=== PATIENT | male | born 1955 | race Asian ===

== ENCOUNTER 2017-08-16 02:56 | Inpatient (IN) | payer OTHER ==
[~2017-08-16] VITALS: Ht 160 cm; Wt 67.6 kg
[2017-08-16] MEDS ORDERED: LOSA25TA21 PO (03:07)
[2017-08-16] MEDS ORDERED: [UNRECOGNIZED DRUG - REMARK] PO (03:09)
[2017-08-16] MEDS ORDERED: [UNRECOGNIZED DRUG - REMARK] PO (03:09)
[2017-08-16] MEDS ORDERED: SODIUM CHLORIDE 0.9% 1,000 ML IV ONE ×2 (03:30→07:00)
[2017-08-16] MEDS ORDERED: ACETAMINOPHEN 500 MG TABLET PO ONE (03:30)
[2017-08-16] MEDS ORDERED: ONDANSETRON HCL 4 MG/2 ML VIAL IVP ONE (03:30)
[2017-08-16] MEDS ORDERED: HYDROmorphone 2 MG/ML SYRINGE IVP ONE (03:30)
[2017-08-16 03:34] LABS: HEMATOCRIT 41.2 % (41-53); HEMOGLOBIN 13.7 g/dL (13.5-17.5); MEAN CORPUSCULAR HEMOGLOBIN 29.4 pg (26.0-34.0); MEAN CORPUSCULAR HGB CONC 33.3 G/dL (31.0-37.0); MEAN CORPUSCULAR VOLUME 88 fL (80-100); PLATELET COUNT (AUTO) 606 K/uL (150-450); RED BLOOD CELL COUNT(AUTO) 4.67 MIL/uL (4.50-5.90); RED CELL DISTRIBUTION WIDTH 14.2 % (11.5-14.5); WHITE BLOOD COUNT (AUTO) 19.9 K/uL (4.5-11.0)
[2017-08-16 03:42] LABS: CALCIUM, TOTAL 8.9 mg/dL (8.8-10.5); CREATININE 2.05 mg/dL (0.60-1.30); POTASSIUM 3.7 mmol/L (3.5-5.1)
[2017-08-16 03:57] LABS: ALBUMIN 3.4 g/dL (3.4-5.0); BILIRUBIN,TOTAL 0.7 mg/dL (0.1-1.0); TOTAL PROTEIN, SERUM 7.9 g/dL (6.4-8.2)
[2017-08-16 04:00] LABS: BAND NEUTROPHILS % (MANUAL) 18 % (1-5); LYMPHOCYTES % (MANUAL) 5 % (22-44); TOTAL CELLS COUNTED 100
[2017-08-16 04:01] LABS: RBC MORPHOLOGY COMMENT NORMAL RBC MORPH
[2017-08-16 04:03] LABS: APPEARANCE,URINE CLOUDY (CLEAR); GLUCOSE, URINE (UA) NEGATIVE (NEGATIVE); KETONES,URINE NEGATIVE (NEGATIVE); LEUKOCYTE ESTERASE ,URINE LARGE (NEGATIVE); OCCULT BLOOD,URINE MODERATE (NEGATIVE); PROTEIN,URINE TRACE (NEGATIVE)
[2017-08-16 04:08] LABS: ADD UA MICROSCOPIC YES
[2017-08-16 04:20] LABS: RBC,URINE 0-2 /HPF (0-2); SQUAMOUS EPITHELIAL CELL,UR Few /LPF (None Seen); WBC,URINE 26-50 /HPF (0-5)
[2017-08-16] MEDS ORDERED: CefTRIAXone 1 GM/DEXTROSE 50 ML IV ONE (07:00)
[2017-08-16 07:06] LABS: LACTIC ACID 2.2 mmol/L (0.4-2.0)
[2017-08-16 08:25] LABS: REFLEX LACTIC ACID? YES YES
[2017-08-16] MEDS ORDERED: MAGNESIUM HYDROXIDE SUSPENSION 30 ML UDCUP PO PRN (09:15)
[2017-08-16] MEDS ORDERED: ONDANSETRON HCL 4 MG/2 ML VIAL IVP PRN (09:15)
[2017-08-16] MEDS ORDERED: BISACODYL 10 MG RECTAL RECTAL SUPPOSITORY PR PRN (09:15)
[2017-08-16] MEDS: SODIUM CHLORIDE 0.9% 1,000 ML IV SCH ×2 (09:30→20:16)
[2017-08-16] MEDS: PIPERACILLIN SODIUM/TAZOBACTAM 2.25 GM in DEXTROSE 5%-WATER 50 ML IV SCH ×3 (09:32→21:23)
[2017-08-16 11:09] VITALS: BP 141/82
[2017-08-16 12:50] LABS: INR 1.1 (0.9-1.1)
[2017-08-16] MEDS ORDERED: MIDAZOLAM HCL 2 MG/2 ML VIAL ONE ×2 (12:56→15:02)
[2017-08-16] MEDS ORDERED: FentaNYL CITRATE-PF 100 MCG/2 ML VIAL ONE ×2 (12:56→15:02)
[2017-08-16] MEDS ORDERED: CeFAZolin 1 GM/DEXTROSE 0 ML IV ONE (12:56)
[2017-08-16] MEDS ORDERED: LIDOCAINE HCL/PF 1% 30 ML VIAL ONE (15:02)
[2017-08-16] MEDS ORDERED: CeFAZolin 1 GM/DEXTROSE 50 ML IV ONE ×2 (15:03→16:35)
[2017-08-16 15:33] VITALS: BP 120/63
[2017-08-16] MEDS ORDERED: IOHEXOL 240 MG/ML 50 ML VIAL ONE (15:42)
[2017-08-16] MEDS ORDERED: PNEUMOCOCCAL VACCINE POLYVALENT 0.5 ML VIAL [PPSV23] IM ONE (17:00)
[2017-08-16] MEDS: ACETAMINOPHEN 325 MG TABLET PO PRN (17:58)
[2017-08-16] MEDS: DOCUSATE SODIUM 100 MG CAPSULE PO SCH (20:08)
[2017-08-16 20:27] VITALS: BP 94/58
[2017-08-16 23:40] VITALS: BP 119/69
[2017-08-17] MEDS: ACETAMINOPHEN 325 MG TABLET PO PRN ×4 (02:05→20:00)
[2017-08-17] MEDS: PIPERACILLIN SODIUM/TAZOBACTAM 2.25 GM in DEXTROSE 5%-WATER 50 ML IV SCH ×4 (03:43→21:31)
[2017-08-17 04:59] VITALS: BP 93/52
[2017-08-17 07:25] VITALS: BP 110/61
[2017-08-17] MEDS: PANTOPRAZOLE SODIUM 40 MG/VIAL IVP SCH (07:55)
[2017-08-17] MEDS: DOCUSATE SODIUM 100 MG CAPSULE PO SCH ×2 (07:55→21:30)
[2017-08-17] MEDS: SODIUM CHLORIDE 0.9% 1,000 ML IV SCH (11:03)
[2017-08-17 11:27] VITALS: BP 103/64
[2017-08-17 15:25] VITALS: BP 98/56
[2017-08-17] MEDS: MORPHINE SULFATE 2 MG/ML SYRINGE IVP PRN (18:55)
[2017-08-17 20:25] VITALS: BP 147/84
[2017-08-17 23:52] VITALS: BP 125/78
[2017-08-18] MEDS: ACETAMINOPHEN 325 MG TABLET PO PRN ×5 (00:18→23:24)
[2017-08-18] MEDS: SODIUM CHLORIDE 0.9% 1,000 ML IV SCH ×3 (00:21→20:17)
[2017-08-18] MEDS: PIPERACILLIN SODIUM/TAZOBACTAM 2.25 GM in DEXTROSE 5%-WATER 50 ML IV SCH (04:05)
[2017-08-18 05:17] VITALS: BP 133/76
[2017-08-18 07:03] LABS: CALCIUM, TOTAL 8.5 mg/dL (8.8-10.5); CREATININE 1.76 mg/dL (0.60-1.30); POTASSIUM 3.6 mmol/L (3.5-5.1)
[2017-08-18 07:14] LABS: BASOPHILS % (AUTO) 0.1 % (0.0-2.0); EOSINOPHILS % (AUTO) 0.3 % (1.0-6.0); HEMATOCRIT 34.6 % (41-53); HEMOGLOBIN 11.5 g/dL (13.5-17.5); LYMPHOCYTES % (AUTO) 3.7 % (22.0-44.0); MEAN CORPUSCULAR HEMOGLOBIN 29.8 pg (26.0-34.0); MEAN CORPUSCULAR HGB CONC 33.3 G/dL (31.0-37.0); MEAN CORPUSCULAR VOLUME 90 fL (80-100); MONOCYTES # (AUTO) 0.9 K/uL (0.1-1.0); MONOCYTES % (AUTO) 3.2 % (2.0-9.0); NEUTROPHILS # (AUTO) 25.3 K/uL (1.8-7.7); NEUTROPHILS % (AUTO) 92.7 % (40.0-70.0); PLATELET COUNT (AUTO) 348 K/uL (150-450); RBC MORPHOLOGY COMMENT NORMAL RBC MORPH; RED BLOOD CELL COUNT(AUTO) 3.85 MIL/uL (4.50-5.90); RED CELL DISTRIBUTION WIDTH 14.7 % (11.5-14.5); WHITE BLOOD COUNT (AUTO) 27.3 K/uL (4.5-11.0)
[2017-08-18 07:20] VITALS: BP 134/77
[2017-08-18] MEDS: DOCUSATE SODIUM 100 MG CAPSULE PO SCH ×2 (08:06→20:16)
[2017-08-18] MEDS: PANTOPRAZOLE SODIUM 40 MG/VIAL IVP SCH (08:06)
[2017-08-18 11:18] VITALS: BP 115/61
[2017-08-18] MEDS ORDERED: CefoTEtan DISOD 1 GM/DEXTROSE 50 ML IV SCH (12:00)
[2017-08-18 15:02] VITALS: BP 128/73
[2017-08-18 19:49] VITALS: BP 142/75
[2017-08-18] MEDS: CefoTEtan DISOD 1 GM/DEXTROSE 50 ML IV SCH (23:24)
[2017-08-18 23:38] VITALS: BP 152/85
[2017-08-19] VITALS (7 sets, daily range): BP systolic 135–162; BP diastolic 72–89
[2017-08-19] MEDS: MORPHINE SULFATE 2 MG/ML SYRINGE IVP PRN ×2 (02:54→08:05)
[2017-08-19] MEDS: DOCUSATE SODIUM 100 MG CAPSULE PO SCH ×2 (08:04→20:07)
[2017-08-19] MEDS: PANTOPRAZOLE SODIUM 40 MG/VIAL IVP SCH (08:04)
[2017-08-19] MEDS: SODIUM CHLORIDE 0.9% 1,000 ML IV SCH ×2 (08:04→23:29)
[2017-08-19] MEDS: CefoTEtan DISOD 1 GM/DEXTROSE 50 ML IV SCH ×2 (12:24→23:09)
[2017-08-19] MEDS: ACETAMINOPHEN 325 MG TABLET PO PRN (16:18)
[2017-08-19] MEDS: OXYGEN THERAPY IH SCH (20:07)
[2017-08-20] MEDS: MORPHINE SULFATE 2 MG/ML SYRINGE IVP PRN ×2 (02:32→08:22)
[2017-08-20 04:47] VITALS: BP 156/86
[2017-08-20 07:46] VITALS: BP 162/89
[2017-08-20] MEDS: OXYGEN THERAPY IH SCH ×2 (08:19→20:14)
[2017-08-20] MEDS: PANTOPRAZOLE SODIUM 40 MG/VIAL IVP SCH (08:19)
[2017-08-20] MEDS: DOCUSATE SODIUM 100 MG CAPSULE PO SCH ×2 (08:21→20:14)
[2017-08-20] MEDS ORDERED: AmLODIPine BESYLATE 5 MG TABLET PO SCH (09:00)
[2017-08-20 11:28] VITALS: BP 150/83
[2017-08-20] MEDS: CefoTEtan DISOD 1 GM/DEXTROSE 50 ML IV SCH (11:39)
[2017-08-20] MEDS: SODIUM CHLORIDE 0.9% 1,000 ML IV SCH (14:59)
[2017-08-20 15:54] VITALS: BP 130/58
[2017-08-20 19:33] VITALS: BP 160/88
[2017-08-20 23:59] VITALS: BP 156/87
[2017-08-21] MEDS: MORPHINE SULFATE 2 MG/ML SYRINGE IVP PRN (00:10)
[2017-08-21] MEDS: CefoTEtan DISOD 1 GM/DEXTROSE 50 ML IV SCH ×3 (00:10→23:51)
[2017-08-21 04:47] VITALS: BP 156/81
[2017-08-21] MEDS: SODIUM CHLORIDE 0.9% 1,000 ML IV SCH ×2 (06:10→20:12)
[2017-08-21 07:10] LABS: BASOPHILS % (AUTO) 0.2 % (0.0-2.0); CALCIUM, TOTAL 8.6 mg/dL (8.8-10.5); CREATININE 1.22 mg/dL (0.60-1.30); EOSINOPHILS % (AUTO) 2.1 % (1.0-6.0); HEMATOCRIT 35.4 % (41-53); HEMOGLOBIN 11.9 g/dL (13.5-17.5); LYMPHOCYTES # (AUTO) 1.7 K/uL (1.0-4.8); LYMPHOCYTES % (AUTO) 13.5 % (22.0-44.0); MEAN CORPUSCULAR HEMOGLOBIN 29.6 pg (26.0-34.0); MEAN CORPUSCULAR HGB CONC 33.5 G/dL (31.0-37.0); MEAN CORPUSCULAR VOLUME 88 fL (80-100); MONOCYTES # (AUTO) 1.7 K/uL (0.1-1.0); MONOCYTES % (AUTO) 13.4 % (2.0-9.0); NEUTROPHILS # (AUTO) 8.8 K/uL (1.8-7.7); NEUTROPHILS % (AUTO) 70.8 % (40.0-70.0); PLATELET COUNT (AUTO) 390 K/uL (150-450); POTASSIUM 3.3 mmol/L (3.5-5.1); RED BLOOD CELL COUNT(AUTO) 4.02 MIL/uL (4.50-5.90); RED CELL DISTRIBUTION WIDTH 14.8 % (11.5-14.5); WHITE BLOOD COUNT (AUTO) 12.5 K/uL (4.5-11.0)
[2017-08-21 07:48] VITALS: BP 160/84
[2017-08-21] MEDS ORDERED: POTASSIUM CHLORIDE 20 MEQ ER TABLET PO PRN (08:00)
[2017-08-21] MEDS: OXYGEN THERAPY IH SCH ×2 (08:20→20:00)
[2017-08-21] MEDS: DOCUSATE SODIUM 100 MG CAPSULE PO SCH ×2 (08:21→20:12)
[2017-08-21] MEDS: AmLODIPine BESYLATE 10 MG TABLET PO SCH (08:21)
[2017-08-21] MEDS: PANTOPRAZOLE SODIUM 40 MG/VIAL IVP SCH (08:21)
[2017-08-21] MEDS: MULTIVITAMINS WITH MINERALS, THERAPEUTIC TABLET PO SCH (08:21)
[2017-08-21 12:07] VITALS: BP 142/79
[2017-08-21 15:32] VITALS: BP 158/81
[2017-08-21] MEDS: ACETAMINOPHEN 325 MG TABLET PO PRN (16:39)
[2017-08-21 19:56] VITALS: BP 138/81
[2017-08-21 23:35] VITALS: BP 137/85
[2017-08-22 05:23] VITALS: BP 152/90
[2017-08-22 06:13] LABS: BASOPHILS % (AUTO) 0.2 % (0.0-2.0); EOSINOPHILS % (AUTO) 2.5 % (1.0-6.0); HEMATOCRIT 35.1 % (41-53); HEMOGLOBIN 11.7 g/dL (13.5-17.5); LYMPHOCYTES % (AUTO) 14.9 % (22.0-44.0); MEAN CORPUSCULAR HEMOGLOBIN 29.1 pg (26.0-34.0); MEAN CORPUSCULAR HGB CONC 33.4 G/dL (31.0-37.0); MEAN CORPUSCULAR VOLUME 87 fL (80-100); MONOCYTES # (AUTO) 1.1 K/uL (0.1-1.0); MONOCYTES % (AUTO) 7.9 % (2.0-9.0); NEUTROPHILS # (AUTO) 9.9 K/uL (1.8-7.7); NEUTROPHILS % (AUTO) 74.5 % (40.0-70.0); PLATELET COUNT (AUTO) 394 K/uL (150-450); RED BLOOD CELL COUNT(AUTO) 4.03 MIL/uL (4.50-5.90); RED CELL DISTRIBUTION WIDTH 15.1 % (11.5-14.5); WHITE BLOOD COUNT (AUTO) 13.3 K/uL (4.5-11.0)
[2017-08-22 06:29] LABS: ANION GAP 9 mmol/L (8-16); CALCIUM, TOTAL 8.7 mg/dL (8.8-10.5); CARBON DIOXIDE 28 mmol/L (22-29); CHLORIDE 100 mmol/L (98-107); CREATININE 1.19 mg/dL (0.60-1.30); GLOMERULAR FILTR. RATE CALC > 60 mL/min (>60); SODIUM SERUM 137 mmol/L (136-145); UREA NITROGEN, BLOOD 12 mg/dL (7-18)
[2017-08-22 07:31] VITALS: BP 141/62
[2017-08-22] MEDS: OXYGEN THERAPY IH SCH (08:00)
[2017-08-22] MEDS: MULTIVITAMINS WITH MINERALS, THERAPEUTIC TABLET PO SCH (08:20)
[2017-08-22] MEDS: DOCUSATE SODIUM 100 MG CAPSULE PO SCH ×2 (08:20→20:23)
[2017-08-22] MEDS: ACETAMINOPHEN 325 MG TABLET PO PRN ×2 (08:20→18:20)
[2017-08-22] MEDS: PANTOPRAZOLE SODIUM 40 MG/VIAL IVP SCH (08:20)
[2017-08-22] MEDS: AmLODIPine BESYLATE 10 MG TABLET PO SCH (08:20)
[2017-08-22 11:10] VITALS: BP 123/63
[2017-08-22] MEDS: CefoTEtan DISOD 1 GM/DEXTROSE 50 ML IV SCH ×2 (11:25→23:01)
[2017-08-22] MEDS: SODIUM CHLORIDE 0.9% 1,000 ML IV SCH (11:26)
[2017-08-22 15:41] VITALS: BP 140/72
[2017-08-22 20:02] VITALS: BP 125/64
[2017-08-22 23:30] VITALS: BP 138/74
[2017-08-23] MEDS: MORPHINE SULFATE 2 MG/ML SYRINGE IVP PRN ×2 (00:29→05:28)
[2017-08-23] MEDS: ACETAMINOPHEN 325 MG TABLET PO PRN ×2 (02:18→07:49)
[2017-08-23] MEDS: SODIUM CHLORIDE 0.9% 1,000 ML IV SCH ×2 (02:30→16:21)
[2017-08-23 05:00] VITALS: BP 151/80
[2017-08-23 06:46] LABS: BASOPHILS % (AUTO) 0.2 % (0.0-2.0); EOSINOPHILS % (AUTO) 2.3 % (1.0-6.0); HEMATOCRIT 37.5 % (41-53); HEMOGLOBIN 12.5 g/dL (13.5-17.5); LYMPHOCYTES # (AUTO) 2.3 K/uL (1.0-4.8); LYMPHOCYTES % (AUTO) 18.2 % (22.0-44.0); MEAN CORPUSCULAR HEMOGLOBIN 29.1 pg (26.0-34.0); MEAN CORPUSCULAR HGB CONC 33.2 G/dL (31.0-37.0); MEAN CORPUSCULAR VOLUME 88 fL (80-100); MONOCYTES # (AUTO) 1.3 K/uL (0.1-1.0); MONOCYTES % (AUTO) 10.4 % (2.0-9.0); NEUTROPHILS # (AUTO) 8.7 K/uL (1.8-7.7); NEUTROPHILS % (AUTO) 68.9 % (40.0-70.0); PLATELET COUNT (AUTO) 470 K/uL (150-450); RED BLOOD CELL COUNT(AUTO) 4.28 MIL/uL (4.50-5.90); RED CELL DISTRIBUTION WIDTH 14.8 % (11.5-14.5); WHITE BLOOD COUNT (AUTO) 12.6 K/uL (4.5-11.0)
[2017-08-23 06:52] LABS: ANION GAP 9 mmol/L (8-16); CALCIUM, TOTAL 8.7 mg/dL (8.8-10.5); CARBON DIOXIDE 28 mmol/L (22-29); CHLORIDE 99 mmol/L (98-107); CREATININE 1.19 mg/dL (0.60-1.30); GLOMERULAR FILTR. RATE CALC > 60 mL/min (>60); POTASSIUM 3.7 mmol/L (3.5-5.1); SODIUM SERUM 136 mmol/L (136-145); UREA NITROGEN, BLOOD 11 mg/dL (7-18)
[2017-08-23] MEDS: DOCUSATE SODIUM 100 MG CAPSULE PO SCH ×2 (07:49→21:35)
[2017-08-23] MEDS: PANTOPRAZOLE SODIUM 40 MG/VIAL IVP SCH (07:49)
[2017-08-23] MEDS: MULTIVITAMINS WITH MINERALS, THERAPEUTIC TABLET PO SCH (07:49)
[2017-08-23] MEDS: AmLODIPine BESYLATE 10 MG TABLET PO SCH (07:49)
[2017-08-23 07:54] VITALS: BP 150/79
[2017-08-23] MEDS: OXYGEN THERAPY IH SCH ×2 (08:00→20:00)
[2017-08-23 11:42] VITALS: BP 132/76
[2017-08-23] MEDS: CefoTEtan DISOD 1 GM/DEXTROSE 50 ML IV SCH (11:55)
[2017-08-23] MEDS: INDOMETHACIN 25 MG CAPSULE PO PRN ×2 (13:04→21:36)
[2017-08-23 16:10] VITALS: BP 139/78
[2017-08-23 17:15] LABS: APPEARANCE,URINE CLEAR (CLEAR); GLUCOSE, URINE (UA) NEGATIVE (NEGATIVE); KETONES,URINE NEGATIVE (NEGATIVE); LEUKOCYTE ESTERASE ,URINE NEGATIVE (NEGATIVE); OCCULT BLOOD,URINE NEGATIVE (NEGATIVE); PH,URINE 6.5 (5.0-8.0); PROTEIN,URINE NEGATIVE (NEGATIVE)
[2017-08-23 17:18] LABS: ADD UA MICROSCOPIC NO
[2017-08-23 20:12] VITALS: BP 136/72
[2017-08-24] MEDS: CefoTEtan DISOD 1 GM/DEXTROSE 50 ML IV SCH ×2 (00:04→12:00)
[2017-08-24 01:17] VITALS: BP 158/88
[2017-08-24 04:37] VITALS: BP 146/83
[2017-08-24] MEDS: SODIUM CHLORIDE 0.9% 1,000 ML IV SCH (06:30)
[2017-08-24 07:18] LABS: BASOPHILS % (AUTO) 0.1 % (0.0-2.0); EOSINOPHILS % (AUTO) 4.7 % (1.0-6.0); HEMATOCRIT 35.8 % (41-53); HEMOGLOBIN 12.1 g/dL (13.5-17.5); LYMPHOCYTES # (AUTO) 1.9 K/uL (1.0-4.8); LYMPHOCYTES % (AUTO) 14.8 % (22.0-44.0); MEAN CORPUSCULAR HEMOGLOBIN 29.5 pg (26.0-34.0); MEAN CORPUSCULAR HGB CONC 33.8 G/dL (31.0-37.0); MEAN CORPUSCULAR VOLUME 87 fL (80-100); MONOCYTES % (AUTO) 7.9 % (2.0-9.0); NEUTROPHILS # (AUTO) 9.3 K/uL (1.8-7.7); NEUTROPHILS % (AUTO) 72.5 % (40.0-70.0); PLATELET COUNT (AUTO) 533 K/uL (150-450); RED CELL DISTRIBUTION WIDTH 14.9 % (11.5-14.5); WHITE BLOOD COUNT (AUTO) 12.8 K/uL (4.5-11.0)
[2017-08-24 07:29] LABS: PROTHROMBIN TIME 10.8 SEC (9.4-11.6)
[2017-08-24 07:30] VITALS: BP 150/79
[2017-08-24 07:30] LABS: ANION GAP 6 mmol/L (8-16); CALCIUM, TOTAL 8.8 mg/dL (8.8-10.5); CARBON DIOXIDE 31 mmol/L (22-29); CHLORIDE 103 mmol/L (98-107); CREATININE 1.07 mg/dL (0.60-1.30); GLOMERULAR FILTR. RATE CALC > 60 mL/min (>60); POTASSIUM 4.3 mmol/L (3.5-5.1); SODIUM SERUM 140 mmol/L (136-145); UREA NITROGEN, BLOOD 13 mg/dL (7-18)
[2017-08-24] MEDS: OXYGEN THERAPY IH SCH ×2 (08:00→20:18)
[2017-08-24] MEDS ORDERED: RINGERS SOLUTION,LACTATED 1,000 ML IV ONE ×2 (10:00→10:04)
[2017-08-24] MEDS ORDERED: IOHEXOL 240 MG/ML 20 ML VIAL ONE (10:34)
[2017-08-24] MEDS ORDERED: CefTRIAXone SODIUM 1 GM/VIAL ONE (10:34)
[2017-08-24] MEDS ORDERED: SUCCINYLCHOLINE CHLORIDE 20 MG/ML 10 ML VIAL IVP ONE (12:00)
[2017-08-24] MEDS ORDERED: LIDOCAINE HCL/PF 2% 5 ML VIAL INJ ONE (12:00)
[2017-08-24] MEDS ORDERED: PROPOFOL 1% 20 ML VIAL IVP ONE (12:00)
[2017-08-24] MEDS ORDERED: MIDAZOLAM HCL 2 MG/2 ML VIAL IVP ONE (12:00)
[2017-08-24] MEDS ORDERED: FentaNYL CITRATE-PF 100 MCG/2 ML VIAL IVP ONE (12:00)
[2017-08-24] MEDS ORDERED: ROCURONIUM BROMIDE 10 MG/ML 5 ML VIAL IVP ONE (12:00)
[2017-08-24] MEDS ORDERED: HYDROmorphone 2 MG/ML SYRINGE ONE (12:53)
[2017-08-24] MEDS: HYDROmorphone 2 MG/ML SYRINGE IVP PRN ×2 (12:54→13:04)
[2017-08-24] MEDS ORDERED: MEPERIDINE-PF 25 MG/ML SYRINGE IVP PRN (13:00)
[2017-08-24] MEDS ORDERED: HYDROmorphone 2 MG/ML SYRINGE IVP PRN (13:00)
[2017-08-24] MEDS ORDERED: MEPERIDINE-PF 25 MG/ML SYRINGE ONE (13:08)
[2017-08-24] MEDS ORDERED: RINGERS SOLUTION,LACTATED 500 ML IV ONE (13:49)
[2017-08-24] MEDS: MORPHINE SULFATE 2 MG/ML SYRINGE IVP PRN ×3 (14:45→23:27)
[2017-08-24] MEDS: DOCUSATE SODIUM 100 MG CAPSULE PO SCH ×2 (15:06→20:10)
[2017-08-24] MEDS: MULTIVITAMINS WITH MINERALS, THERAPEUTIC TABLET PO SCH (15:06)
[2017-08-24] MEDS: PANTOPRAZOLE SODIUM 40 MG/VIAL IVP SCH (15:06)
[2017-08-24] MEDS: AmLODIPine BESYLATE 10 MG TABLET PO SCH (15:06)
[2017-08-24 15:18] VITALS: BP 137/70
[2017-08-24] MEDS: ACETAMINOPHEN 325 MG TABLET PO PRN ×2 (17:02→21:49)
[2017-08-24 19:36] VITALS: BP 141/69
[2017-08-25 00:01] VITALS: BP 132/67
[2017-08-25] MEDS: CefoTEtan DISOD 1 GM/DEXTROSE 50 ML IV SCH ×2 (00:36→12:38)
[2017-08-25] MEDS: SODIUM CHLORIDE 0.9% 1,000 ML IV SCH ×2 (00:37→11:51)
[2017-08-25 04:19] VITALS: BP 125/66
[2017-08-25 07:53] VITALS: BP 127/73
[2017-08-25] MEDS: AmLODIPine BESYLATE 10 MG TABLET PO SCH (08:39)
[2017-08-25] MEDS: DOCUSATE SODIUM 100 MG CAPSULE PO SCH (08:39)
[2017-08-25] MEDS: MULTIVITAMINS WITH MINERALS, THERAPEUTIC TABLET PO SCH (08:40)
[2017-08-25] MEDS: PANTOPRAZOLE SODIUM 40 MG/VIAL IVP SCH (08:40)
[2017-08-25] MEDS: OXYGEN THERAPY IH SCH (08:45)
[2017-08-25 11:25] VITALS: BP 132/60
[2017-08-25 15:54] VITALS: BP 161/78
[2017-09-03 08:23] LABS: STONE CA-OXALATE MONOHYDRATE 95 %; STONE COLOR Brown
== END 2017-08-25 16:30 | DRG 710 ==
LOC: EMS 02:58 → 5S 09:30
PROVIDERS: ADMIT Internal Medicine; ATTEND Internal Medicine
PROC: 3E0234Z Introduction of Serum, Toxoid and Vaccine into Muscle, Percutaneous Approach (ICD-10-PCS; 2017-08-19)
PROC: 0TP5X0Z Removal of Drainage Device from Kidney, External Approach (ICD-10-PCS; 2017-08-24)
PROC: BT1D1ZZ Fluoroscopy of Right Kidney, Ureter and Bladder using Low Osmolar Contrast (ICD-10-PCS; 2017-08-24)
PROC: 0T768DZ Dilation of Right Ureter with Intraluminal Device, Via Natural or Artificial Opening Endoscopic (ICD-10-PCS; 2017-08-24)
PROC: 0TC68ZZ Extirpation of Matter from Right Ureter, Via Natural or Artificial Opening Endoscopic (ICD-10-PCS; principal; 2017-08-24 11:00)
DX: A41.51 Sepsis due to Escherichia coli [E. coli] (principal); N17.9 Acute kidney failure, unspecified; I10 Essential (primary) hypertension; N13.2 Hydronephrosis with renal and ureteral calculous obstruction; N39.0 Urinary tract infection, site not specified; B96.20 Unspecified Escherichia coli [E. coli] as the cause of diseases classified elsewhere; E78.00 Pure hypercholesterolemia, unspecified; Z16.24 Resistance to multiple antibiotics; Z23 Encounter for immunization; Z88.6 Allergy status to analgesic agent; Z79.899 Other long term (current) drug therapy
CPT/HCPCS: 36245; 74176; 75989; 76937; 83605; 84132; 87040; 87070; 87086; 87205; 88300; 90471; 93005; 96361; 96365; 96375; 97161; 97165; 99285; C9113; J0330; J0690; J0696; J1170; J2175; J2250; J2270; J2405; J2543; J2704; J3010; J3490; J7030; J7060; J7120; Q9966

== ENCOUNTER 2021-03-22 12:43 | Emergency (ER) | payer MEDICARE, MEDICAID ==
[~2021-03-22] VITALS: Ht 160 cm; Wt 65.9 kg
[~2021-03-22 12:43] MED LIST: LOSA25TA21 PO; [UNRECOGNIZED DRUG - REMARK] PO
[2021-03-22 12:47] VITALS: BP 152/72
== END 2021-03-22 13:24 | disposition home or self-care (01) ==
LOC: EMS 12:47
DX: S00.01XA Abrasion of scalp, initial encounter (principal); I10 Essential (primary) hypertension; E78.00 Pure hypercholesterolemia, unspecified; F17.210 Nicotine dependence, cigarettes, uncomplicated; Z88.6 Allergy status to analgesic agent; W06.XXXA Fall from bed, initial encounter; Y93.89 Activity, other specified; Y92.89 Other specified places as the place of occurrence of the external cause; Y99.8 Other external cause status
CPT/HCPCS: 99281; Z7502